=== PATIENT | female | born 1960 | race Caucasian/White ===

== ENCOUNTER → 2019-06-20 | Outpatient (CLI) | payer OTHER ==
[~2019-06-20] MED LIST: ALB0.5 INH; ALB18R INH; ASPI81TA86 PO; ATOR10TA65 PO; ATOR20TA65 PO; ATR10 PO; AZIT-1 PO; AZIT-18 PO; BENZ200C15 PO; CHOL10005 PO; FEXO-72 PO; FLU45SYR25 IM ONLY; GUAI120L3 PO; IBU800 PO; KRIL1CAP6 PO; LEVO75TA73 PO; LEVO88TA43 PO; LORA-802 PO; METH4TAB66 PO; MONT10TA PO; MULT-820 PO; Nebulizer; PER PO; PNEI IM; PRED20TA6 PO; UBID100C48 PO; VITA-197 PO; VITAMINS
--- NOTE | 2019-06-20 14:01 | RADIOLOGY IMAGING REPORT ---
FAC[place] [facility] [place]IENT NAME: LOTTIE ELY : [id number] MR: [id number] V: [id number] EXAM DATE: [id number] ORDERING PHYSICIAN: CHIP MIJARES TECHNOLOGIST: Monse Castillo PROCEDURE: BILATERAL DIGITAL SCREENING MAMMOGRAM WITH CAD ASSISTED INTERPRETATION & 3D TOMOSYNTHESIS REASON FOR STUDY: Screening. FAMILY HISTORY OF BREAST CANCER: None. BREAST PROCEDURES/TREATMENTS: None. COMPARISON: 09/02/13, 08/28/12, 08/02/12. VIEWS OBTAINED: Bilateral 2D & 3D full field CC & MLO projections. BREAST DENSITY: The breasts are heterogeneously dense which can obscure small masses. MAMMOGRAM FINDINGS: The parenchymal pattern has remained stable allowing for difference in mammographic technique & patient positioning. IMPRESSION: BIRADS 1: Negative. DIAGNOSTIC CATEGORY 1--NEGATIVE. RECOMMENDATIONS: ROUTINE MAMMOGRAM AND CLINICAL EVALUATION. Dictated by: Adriana Jiménez M.D. on 06/20/2019 at 11:31 Transcribed by: MAXI on 06/20/2019 at 13:52 Approved by: Adriana Jiménez M.D. on 06/20/2019 at 13:55 [facility]
== END ==
LOC: MAMO 04:21
PROVIDERS: ATTEND Emergency Medicine
DX: Z12.31 Encounter for screening mammogram for malignant neoplasm of breast (principal)
CPT/HCPCS: 77063; 77067